=== PATIENT | female | born 1955 | race Caucasian/White ===

== ENCOUNTER 2021-05-19 13:54 | Emergency (ER) | payer OTHER, SELFPAY ==
[2021-05-19] VITALS (10 sets, daily range): BP systolic 125–145; BP diastolic 60–85; PULSE 79–107; RESP 17–18; TEMP 37.1; O2SAT 95–98
[2021-05-19] MEDS: SODIUM CHLORIDE 0.9% 1,000 ML 1000 ML IV (15:02)
[2021-05-19 15:21] LABS: Add Manual Diff / Slide Review NO; Basophils Absolute Auto 0 /uL (0-100); Basophils Percent Auto 0.1 % (0-2); Eosinophils Absolute Auto 200 /uL (0-450); Eosinophils Percent Auto 1.7 % (2-4); Hematocrit 43.9 % (36-46); Hemoglobin 14.7 g/dL (12.0-16.0); Lymphocytes Absolute Auto 1300 /uL (1100-4500); Lymphocytes Percent Auto 10.7 % (25-40); Mean Corpuscular HGB Conc 33.4 % (30-36); Mean Corpuscular Hemoglobin 28.9 PG (26-34); Mean Corpuscular Volume 86.5 fL (80-100); Monocytes Absolute Auto 400 /uL (0-900); Monocytes Percent Auto 3.4 % (3-14); Neutrophils Absolute Auto 10200 /uL (1500-7000); Neutrophils Percent Auto 84.1 % (50-75); Platelet Count 340 X10^3/uL (150-400); Red Blood Cell Count 5.08 X10^6/uL (4.0-5.2); Red Cell Distribution Width 13.6 % (11.6-14.8); White Blood Cell Count 12.1 X10^3/uL (4.5-11.0)
[2021-05-19 15:42] LABS: Alanine Aminotransferase 28 IU/L (<35); Albumin 4.8 g/dL (3.5-5.0); Albumin Globulin Ratio 1.2 (1.0-2.8); Alkaline Phosphatase 75 U/L (38-126); Aspartate Aminotransferase 36 IU/L (14-36); BUN Creatinine Ratio 17.9 (6-22); Bilirubin Total 0.9 mg/dL (0.2-1.3); Blood Urea Nitrogen 14 mg/dL (7-17); Calcium 9.9 mg/dL (8.4-10.2); Carbon Dioxide 27 mmol/L (22-32); Chloride 98 mmol/L (98-107); Estimated Glomerular Filt Rate > 60.0 mL/min (>60); Globulin 3.9 g/dL (1.7-4.1); Glucose 164 mg/dL (80-110); HEMOLYSIS < 15 (0-50); Lipase 83 U/L (23-300); Potassium 3.1 mmol/L (3.4-5.1); Sodium 138 mmol/L (137-145); Total Protein 8.7 g/dL (6.3-8.2)
[2021-05-19 17:43] LABS: Adenovirus F 40/41 Not Detected (Not Detect); Astrovirus Not Detected (Not Detect); Campylobacter Not Detected (Not Detect); Clostridium difficile toxin AB Not Detected (Not Detect); Cryptosporidium Not Detected (Not Detect); Cyclospora cayetanensis Not Detected (Not Detect); Entamoeba histolytica Not Detected (Not Detect); Enteroaggregative E.coli Not Detected (Not Detect); Enteropathogenic E.coli Not Detected (Not Detect); Enterotoxigenic E.coli It/st Not Detected (Not Detect); Giardia lamblia Not Detected (Not Detect); Norovirus GI/GII Not Detected (Not Detect); Plesiomonsa shigelloides Not Detected (Not Detect); Rotavirus A Not Detected (Not Detect); Salmonella Not Detected (Not Detect); Sapovirus Not Detected (Not Detect); Shiga-like toxin-prod E.coli Not Detected (Not Detect); Shigella/Enteroinvasive E.coli Not Detected (Not Detect); Vibrio Not Detected (Not Detect); Vibrio cholerae Not Detected (Not Detect); Yersinia enterocolitica Not Detected (Not Detect)
--- NOTE | 2021-05-19 18:38 | ED.NAVMDI ---
HPI - Nausea/Vomiting/Diarrhea General Chief complaint: Nausea/Vomiting/Diarrhea Stated complaint: ABD pain nausea vomiting diarrhea gas distended Time Seen by Provider: 05/19/21 18:28 Source: patient and family Mode of arrival: Ambulatory History of Present Illness HPI Narrative: 65-year-old female who is here for evaluation of abdominal pain, nausea with vomiting and diarrhea and feeling bloated. She has had the symptoms for the past couple days. No one else in her family is having symptoms. She states that she feels bloated starts having abdominal pain and then goes and has a loose bowel movement then symptoms improved. Continues to be nauseous. No fevers. No recent antibiotics. No recent travel. She states that she feels like she is dehydrated. No urinary symptoms. Related Data Home Medications Medication Instructions Recorded Confirmed aspirin 81 mg tablet,delayed 81 mg PO DAILY 12/12/17 05/19/21 release glipizide 10 mg tablet 10 mg PO PRN PRN 12/12/17 05/19/21 hydrochlorothiazide 25 mg tablet 25 mg PO DAILY 12/12/17 05/19/21 levothyroxine 150 mcg capsule 150 mcg PO DAILY 12/12/17 05/19/21 liothyronine 5 mcg tablet (Cytomel) 5 mcg PO DAILY 12/12/17 05/19/21 losartan 25 mg tablet 25 mg PO DAILY 12/12/17 05/19/21 pantoprazole 20 mg tablet,delayed 20 mg PO DAILY 12/12/17 05/19/21 release paroxetine HCl 40 mg tablet (Paxil) 40 mg PO DAILY 12/12/17 05/19/21 Resmed Airsense 10 CPAP #1 ea 01/22/19 01/22/19 dulaglutide 1.5 mg/0.5 mL 1.5 mg SUBCUT DAILY 05/19/21 05/19/21 subcutaneous pen injector (Trulicity) insulin detemir U-100 100 unit/mL 20 unit SUBCUT DAILY 05/19/21 05/19/21 (3 mL) subcutaneous pen (Levemir FlexTouch U-100 Insulin) potassium chloride 10 mEq 10 meq PO DAILY 05/19/21 05/19/21 capsule,extended release rosuvastatin 10 mg tablet 10 mg PO DAILY 05/19/21 05/19/21 Previous Rx's Medication Instructions Recorded ondansetron 4 mg disintegrating 4 mg PO Q6H PRN #14 tab 05/19/21 tablet Allergies Allergy/AdvReac Type Severity Reaction Status Date / Time iodine Allergy Vomiting Verified 05/19/21 14:20 codeine AdvReac Vomiting Verified 05/19/21 14:20 diazepam [From Valium] AdvReac severe Verified 05/19/21 14:16 depression Review of Systems Constitutional Constitutional: Denies fever(s) Cardiovascular Cardiovascular: Reports system reviewed and no additional complaints, except as documented Respiratory Respiratory: Reports system reviewed and no additional complaints, except as documented Gastrointestinal Gastrointestinal: Reports as per HPI and Reports system reviewed and no additional complaints, except as documented Genitourinary Genitourinary: Reports system reviewed and no additional complaints, except as documented and Reports as per HPI Hematologic/Lymphatic On Anticoagulants: No Patient History Medical History Behaviorally induced insufficient sleep syndrome Excessive daytime sleepiness GERD (gastroesophageal reflux disease) Hypertension Hypothyroidism Morbid obesity with body mass index (BMI) of 50.0 to 59.9 in adult Obstructive sleep apnea Snoring Type 2 diabetes mellitus Social History Smoking Status: Never smoker Smoking Status: Never smoker alcohol intake frequency: holidays/special occasions only Substance Use Type: does not use Exam Initial Vital Signs Initial Vital Signs: Vital Signs Temperature 98.7 F 05/19/21 14:11 Pulse Rate 107 H 05/19/21 14:11 Respiratory Rate 17 05/19/21 14:11 Blood Pressure 145/85 H 05/19/21 14:11 Pulse Oximetry 95 05/19/21 14:11 Const General: cooperative, comfortable and well developed Limitations: mental status not altered [facility] Head: normal to inspection and normocephalic Resp Effort & Inspection: normal respiratory effort Auscultation: clear to auscultation bilaterally Cardio Rate: regular rate Rhythm: regular rhythm GI Inspection: non-distended Palpation: soft, No firm, No guarding and No tender Back/Spine/Pelvis Back: normal to inspection Skin General: no rashes or lesions noted Neuro General: patient alert, patient awake, patient oriented x3 and moves all extremities Extrem General: capillary refill normal Psych Appearance: grossly normal and well kempt Course Orders Ordered: Discontinued Medications Sodium Chloride (Normal Saline 0.9%) 1,000 mls @ 1,000 mls/hr IV BOLUS ONE Stop: 05/19/21 15:20 Last Infusion: 05/19/21 16:13 Dose: 0 mls/hr Documented by: Admin: 05/19/21 15:02 Dose: 1,000 mls/hr Documented by: KATHLEEN Ondansetron HCl (Ondansetron 4 Mg/2 Ml Inj) 4 mg IV NOW ONE Stop: 05/19/21 18:40 Last Admin: 05/19/21 18:53 Dose: 4 mg Documented by: KATHLEEN Vital Signs Vital signs: Vital Signs - 8 hr 05/19/21 19:07 Pulse Rate 89 Respiratory Rate 18 Blood Pressure 125/60 Pulse Oximetry 98 MDM - Nausea/Vomiting/Diarrhea Lab Data Attestation: I reviewed the patient's lab results. Result diagrams: 05/19/21 14:20 05/19/21 14:20 Labs: Lab Results 05/19/21 05/19/21 05/19/21 Range/Units 14:20 14:20 15:55 WBC 12.1 H (4.5-11.0) X10^3/uL RBC 5.08 (4.0-5.2) X10^6/uL Hgb 14.7 (12.0-16.0) g/dL Hct 43.9 (36-46) % MCV 86.5 (80-100) fL MCH 28.9 (26-34) PG MCHC 33.4 (30-36) % RDW 13.6 (11.6-14.8) % Plt Count 340 (150-400) X10^3/uL Neut % (Auto) 84.1 H (50-75) % Lymph % (Auto) 10.7 L (25-40) % [place] % (Auto) 3.4 (3-14) % Eos % (Auto) 1.7 L (2-4) % Baso % (Auto) 0.1 (0-2) % Neut # (Auto) 81236 H (1127-4374) /uL Lymph # (Auto) 1300 (3736-1318) /uL [place] # (Auto) 400 (0-900) /uL Eos # (Auto) 200 (0-450) /uL Baso # (Auto) 0 (0-100) /uL Sodium 138 (137-145) mmol/L Potassium 3.1 L (3.4-5.1) mmol/L Chloride 98 (98-107) mmol/L Carbon Dioxide 27 (22-32) mmol/L BUN 14 (7-17) mg/dL Creatinine 0.78 (0.52-1.04) mg/dL Estimated GFR > 60.0 (>60) mL/min BUN/Creatinine Ratio 17.9 (6-22) Glucose 164 H (80-110) mg/dL Calcium 9.9 (8.4-10.2) mg/dL Total Bilirubin 0.9 (0.2-1.3) mg/dL AST 36 (14-36) IU/L ALT 28 (<35) IU/L Alkaline Phosphatase 75 (38-126) U/L Total Protein 8.7 H (6.3-8.2) g/dL Albumin 4.8 (3.5-5.0) g/dL Globulin 3.9 (1.7-4.1) g/dL Albumin/Globulin Ratio 1.2 (1.0-2.8) Lipase 83 (23-300) U/L Stl C. cayetanensis PCR Not detected (Not Detect) Stool Rotavirus (PCR) Not detected (Not Detect) Stool Adenovirus (PCR) Not detected (Not Detect) Stool Astrovirus (PCR) Not detected (Not Detect) Stool Cryptosporidium PCR Not detected (Not Detect) Stl E.coli Shiga Tox PCR Not detected (Not Detect) St Sh/Enteroin Ecoli PCR Not detected (Not Detect) Stool E coli O157 PCR Not Reportable Stl Enterotoxigenic E PCR Not detected (Not Detect) Stool EPEC (PCR) Not detected (Not Detect) Stl E. histolytica PCR Not detected (Not Detect) Stool Giardia Lamblia PCR Not detected (Not Detect) Stool Sapovirus (PCR) Not detected (Not Detect) Stl P. shigelloides PCR Not detected (Not Detect) St Y.enterocolitica PCR Not detected (Not Detect) Stool Vibrio (PCR) Not detected (Not Detect) Stl Vibrio cholerae PCR Not detected (Not Detect) Stl Enteroaggr Ecoli PCR Not detected (Not Detect) Stl Norovirus GI/GII PCR Not detected (Not Detect) Campylobacter (PCR) Not detected (Not Detect) C. difficile Tox (PCR) Not detected (Not Detect) Salmonella (PCR) Not detected (Not Detect) Urine Dip Bedside Urine Glucose Negative Bedside Urine Bilirubin - Negative Bedside Urine Ketone - Negative Urine Specific [place] 1.025 Bedside Urine Occult Blood - Negative Bedside Urine pH 6.0 Bedside Urine Protein - Negative Bedside Urine Urobilinogen - Negative Bedside Urine Nitrite - Negative Bedside Urine Leukocytes - Negative Esterase MDM Narrative Medical decision making narrative: Patient has a relatively benign abdominal exam today. Labs are unremarkable. GI panel shows no signs of acute pathogen. No indication for antibiotics. Considered performing a CT scan however she states that her abdominal pain comes on and that she has a bowel movement and then resolves. Has been on the past couple days. I have low suspicion for an acute surgical abdominal issue. No fevers. We did discuss things she could try at home to include probiotics and also anti diarrheal medicines. We did discuss her labs. Will send home with nausea medication. She was given return precautions and follow-up instructions. She expressed understanding agreement. Discharge Plan Departure Patient Disposition: Home Clinical Impression: Vomiting and diarrhea Instructions: Diarrhea, DI for Nausea -- Adult, DI for Vomiting -- Child Activity Restrictions/Additional Instructions: Continue to take all of your medications as directed. Continue to take your pantoprazole. He has the nausea medication as needed. Return to the emergency department for any new or worsening symptoms Prescriptions: New ondansetron 4 mg tablet,disintegrating 4 mg PO Q6H PRN (Reason: nausea and vomiting) Qty: 14 0RF No Action potassium chloride 10 mEq capsule, extended release 10 meq PO DAILY 0RF rosuvastatin 10 mg tablet 10 mg PO DAILY 0RF Levemir FlexTouch U-100 Insuln 100 unit/mL (3 mL) insulin pen 20 unit SUBCUT DAILY 0RF Trulicity 1.5 mg/0.5 mL pen injector 1.5 mg SUBCUT DAILY 0RF (DME) Resmed Airsense 10 CPAP Qty: 1 0RF Dose Instruction: As directed Label Comments: Pressure: 8-16 cmH2O DME: [facility] Rx Instructions: As directed glipizide 10 mg tablet 10 mg PO PRN PRN (Reason: high blood sugar) 0RF liothyronine [Cytomel] 5 mcg tablet 5 mcg PO DAILY 0RF aspirin 81 mg tablet,delayed release (DR/EC) 81 mg PO DAILY 0RF pantoprazole 20 mg tablet,delayed release (DR/EC) 20 mg PO DAILY 0RF losartan 25 mg tablet 25 mg PO DAILY 0RF hydrochlorothiazide 25 mg tablet 25 mg PO DAILY 0RF paroxetine HCl [Paxil] 40 mg tablet 40 mg PO DAILY 0RF levothyroxine 150 mcg capsule 150 mcg PO DAILY 0RF Referrals: Maryana Goodwin MD [Primary Care Provider] -
[2021-05-19] MEDS: ONDANSETRON 4 MG/2 ML INJ IV (18:53)
== END 2021-05-19 19:12 | disposition home or self-care (01) ==
PROVIDERS: Emergency Medicine; Emergency Provider Emergency Medicine; PCP Family Medicine
DX: R10.9 Unspecified abdominal pain (principal); R11.2 Nausea with vomiting, unspecified; R19.7 Diarrhea, unspecified
CPT/HCPCS: 36415; 80053; 81003; 83690; 85025; 87507; 96361; 96374; 99284; J2405

== ENCOUNTER → 2021-12-02 14:16 | Outpatient (CLI) | payer OTHER, SELFPAY ==
[2021-12-02 15:05] LABS: Influenza A - CEPHEID Flu A NEGATIVE (NEGATIVE); Influenza B - CEPHEID Flu B NEGATIVE (NEGATIVE)
[2021-12-02 15:29] LABS: COVID-19 CEPHEID PCR (VTM/NP) Negative (Negative)
== END ==
PROVIDERS: PCP Family Medicine; Visit Provider Nurse Practitioner Family
DX: R05.9 Cough, unspecified (principal)
CPT/HCPCS: 0240U

== ENCOUNTER → 2023-04-23 17:02 | Outpatient (CLI) | payer OTHER, SELFPAY ==
[2023-04-23 17:44] LABS: Influenza A - CEPHEID Flu A NEGATIVE (NEGATIVE); Influenza B - CEPHEID Flu B NEGATIVE (NEGATIVE); Respiratory Syncytial Virus Negative (Negative)
[2023-04-23 17:46] LABS: COVID-19 CEPHEID 4-PLEX PCR Negative (Negative)
== END ==
PROVIDERS: PCP Family Medicine; Visit Provider Physician Assistant
DX: R05.1 Acute cough (principal)
CPT/HCPCS: 0241U

== ENCOUNTER → 2023-04-24 11:07 | Outpatient (CLI) | payer OTHER, SELFPAY ==
--- NOTE | 2023-04-24 11:09 | DI.RAD.S_ITS ---
PROCEDURE: XR CHEST 2V INDICATIONS: Fatigue and cough x 2 weeks TECHNIQUE: 2 views of the chest were acquired. COMPARISON: None. FINDINGS: Surgical changes and devices: None. Lungs and pleura: Lungs are clear. No pleural effusions or pneumothorax. Mediastinum: Mediastinal contours are normal. Heart size is normal. Bones and chest wall: No suspicious bony abnormalities. Soft tissues appear unremarkable. IMPRESSION: No acute process. Dictated by: German Giles M.D. on 04/24/2023 at 14:45 Approved by: German Giles M.D. on 04/24/2023 at 14:45
== END ==
PROVIDERS: PCP Family Medicine; Referring Provider Physician Assistant; Visit Provider Physician Assistant
DX: R05.9 Cough, unspecified (principal)
CPT/HCPCS: 71046